=== PATIENT | male | born 1950 | race Caucasian/White ===

== ENCOUNTER 2016-11-03 15:42 | Observation (INO) | payer OTHER, BC ==
[~2016-11-03] VITALS: Ht 182.9 cm; Wt 106.5 kg
[2016-11-03] MEDS ORDERED: CARVEDILOL6.25 MG PO (16:06)
[2016-11-03] MEDS ORDERED: ATORVASTATIN CA40 MG PO (16:07)
[2016-11-03] MEDS ORDERED: BAYER CHEWABLE81 MG PO (16:07)
[2016-11-03] MEDS ORDERED: LISINOPRIL5 MG PO (16:07)
[2016-11-03] MEDS ORDERED: NEXIUM40 MG PO (16:09)
[2016-11-03] MEDS ORDERED: FISH OIL 1,2001 EAC4 PO (16:09)
[2016-11-03 17:19] LABS: HEMATOCRIT 36.3 % (38.0-50.0); MCH 31.9 PG (29.0-34.0); MCHC 35.8 G/DL (30.0-36.0); MEAN PLAT.VOLUME 10.8 uM^3 (9.0-12.4); PLATELET COUNT 167 K/uL (156-360); RBC DIS.WIDTH-CV 12.7 % (11.8-14.6); RBC DIS.WIDTH-SD 40.6 % (39-53); RED BLOOD COUNT 4.08 M/uL (4.00-5.50); WHITE BLOOD COUNT 10.2 K/uL (4.1-10.2)
[2016-11-03 17:29] LABS: CHLORIDE 111 mEq/L (99-109); SODIUM 139 mEq/L (136-147)
[2016-11-03 17:31] LABS: GLUCOSE 118 mg/dL (70-99)
[2016-11-03 17:33] LABS: ANION GAP 6 MEQ/L (2-14); TOTAL BILIRUBIN 0.8 mg/dL (0.0-1.0)
[2016-11-03 17:35] LABS: ALKALINE PHOSPHATASE 115 IU/L (3-129); GFR ESTIMATE (CALCULATED) > 59 mL/min/
[2016-11-03 17:36] LABS: UREA NITROGEN (BUN) 13 mg/dL (9-23)
[2016-11-03 17:38] LABS: INTER. NORMALIZED RATIO 1.1; LIPASE 32 U/L (1.0-51.0); PTT 23.1 (25-32)
[2016-11-03 17:41] LABS: TROP-I INTERPRETATION NEGATIVE; TROPONIN-I < 0.01 ng/mL (0.0-0.30)
[2016-11-03] MEDS ORDERED: UROXATRAL10 MG PO (18:55)
[2016-11-03 20:42] VITALS: BP 113/55
[2016-11-04 00:34] VITALS: BP 123/65
[2016-11-04 00:44] LABS: HEMATOCRIT 35.6 % (38.0-50.0); MCV 89.2 FL (86-99)
[2016-11-04 05:00] VITALS: BP 107/59
[2016-11-04 05:55] LABS: HEMATOCRIT 34.5 % (38.0-50.0); MCV 90.1 FL (86-99)
[2016-11-04 06:21] LABS: ALKALINE PHOSPHATASE 108 IU/L (3-129); ANION GAP 6 MEQ/L (2-14); CHLORIDE 111 MEQ/L (99-109); GFR ESTIMATE (CALCULATED) > 59 mL/min/; GLUCOSE 95 mg/dL (70-99); SAMPLE HEMOLYSIS CHECK 0; SAMPLE ICTERIC CHECK 0; SAMPLE LIPEMIA CHECK 0; SODIUM 142 MEQ/L (136-147); TOTAL BILIRUBIN 0.9 MG/DL (0.0-1.0); UREA NITROGEN (BUN) 13 mg/dL (9-23)
[2016-11-04 08:17] VITALS: BP 125/67
[2016-11-04 12:03] LABS: MCV 90.5 FL (86-99)
[2016-11-04 12:07] VITALS: BP 115/65
== END 2016-11-04 15:42 | disposition home or self-care (01) ==
LOC: EME 15:42 → EDOF 18:26 → 5WEST 18:26
PROVIDERS: Emergency Medicine; Internal Medicine
DX: K62.5 Hemorrhage of anus and rectum (principal); Z98.890 Other specified postprocedural states; Z79.82 Long term (current) use of aspirin; Z86.010 Personal history of colon polyps; I25.10 Atherosclerotic heart disease of native coronary artery without angina pectoris; Z98.61 Coronary angioplasty status; I73.9 Peripheral vascular disease, unspecified; Z95.810 Presence of automatic (implantable) cardiac defibrillator; I10 Essential (primary) hypertension; E78.5 Hyperlipidemia, unspecified; I25.5 Ischemic cardiomyopathy; K21.9 Gastro-esophageal reflux disease without esophagitis; Z82.49 Family history of ischemic heart disease and other diseases of the circulatory system; Z88.0 Allergy status to penicillin
CPT/HCPCS: 80053; 83605; 83690; 84484; 85014; 85018; 85027; 85610; 85730; 86850; 86900; 86901; 93005; 99281; 99285; C9113; G0378; J7030